=== PATIENT | female | born 1955 | race Two or more races ===

== ENCOUNTER 2021-04-25 15:05 | Inpatient (IN) | payer OTHER ==
[~2021-04-25] VITALS: Ht 152.4 cm; Wt 55.3 kg
--- NOTE | 2021-04-25 15:23 | NUR ---
TO ER BED 6, C/O RLQ ABDOMINAL PAIN, NAUSEA AND VOMITING SINCE THIS MORNING. AAOX4, BREATHING EVEN AND NON LABORED
[2021-04-25] MEDS ORDERED: ONDANSETRON HCL/PF 4 MG/2 ML VIAL IVP ONE (15:30)
[2021-04-25] MEDS ORDERED: IV NS 0.9% 1,000 ML BAG IV ONE (15:30)
[2021-04-25] MEDS ORDERED: MORPHINE SULFATE INJ 2 MG/ML DISP.SYRIN IV ONE ×2 (15:30→18:30)
[2021-04-25] MEDS ORDERED: MORPHINE SULFATE INJ 4 MG/ML DISP.SYRIN ONE ×2 (15:33→18:19)
[2021-04-25] MEDS ORDERED: ONDANSETRON HCL/PF 4 MG/2 ML VIAL ONE ×2 (15:33→18:19)
[2021-04-25 15:49] LABS: BASOPHILS % (AUTO) 0.3 % (0.0-2.0); EOSINOPHILS % (AUTO) 0.3 % (0.0-6.0); HEMATOCRIT 38 % (33-45); HEMOGLOBIN 12.4 g/dL (11.5-14.8); LYMPHOCYTES # (AUTO) 1.5 K/uL (0.8-4.8); LYMPHOCYTES % (AUTO) 17.2 % (20.0-44.0); MEAN CORPUSCULAR HGB CONC 33 g/dl (31.0-36.0); MEAN CORPUSCULAR VOLUME 101 fL (82-100); MONOCYTES # (AUTO) 0.5 K/uL (0.1-1.30); MONOCYTES % (AUTO) 5.8 % (2.0-12.0); NEUTROPHILS # (AUTO) 6.5 K/uL (1.8-8.9); NEUTROPHILS % (AUTO) 76.4 % (43.0-81.0); PLATELET COUNT (AUTO) 215 K/uL (150-450); RED BLOOD CELL COUNT(AUTO) 3.75 MIL/uL (4.0-5.2); WHITE BLOOD COUNT (AUTO) 8.6 K/uL (4.3-11.0)
--- NOTE | 2021-04-25 16:01 | NUR ---
BACK FROM CT
--- NOTE | 2021-04-25 16:14 | NUR ---
CONTACT NUMBER [email or web address] [email or web address]
[2021-04-25] MEDS ORDERED: PIPERACILLIN /TAZOBACTAM 3.375 G in IV D5W 50 ML IV ONE (16:30)
[2021-04-25 16:51] LABS: CARBON DIOXIDE 27 mmol/L (21-32); CHLORIDE 101 mmol/L (98-107); CREATININE 0.9 mg/dL (0.6-1.3); GLUCOSE 166 mg/dL (74-106); POTASSIUM 3.8 mmol/L (3.5-5.1); SODIUM SERUM 137 mmol/L (136-145); UREA NITROGEN, BLOOD 9 mg/dL (7-18)
[2021-04-25 17:03] LABS: ALANINE AMINOTRANSFERASE 34 U/L (12-78); ALBUMIN 3.9 g/dL (3.4-5.0); ALKALINE PHOSPHATASE 146 U/L (46-116); ASPARTATE AMINOTRANSFERASE 40 U/L (15-37); BILIRUBIN,DIRECT 0.2 mg/dL (0.0-0.2); BILIRUBIN,TOTAL 0.6 mg/dL (0.2-1.0); LIPASE 257 U/L (73-393); TOTAL PROTEIN, SERUM 7.5 g/dL (6.4-8.2)
--- NOTE | 2021-04-25 17:09 | NUR ---
COVID SWAB DONE AND SENT TO LAB
--- NOTE | 2021-04-25 17:54 | NUR ---
DR. MCDONALD CONSULTED THE PATIENT.
[2021-04-25] MEDS ORDERED: METRONIDAZOLE 500MG/ NS 100ML 100 ML IV ONE (18:00)
[2021-04-25] MEDS ORDERED: FLAGYL/NS RTU 500 MG/100 ML PIGGYBACK IV ONE (18:00)
[2021-04-25] MEDS ORDERED: LEVOFLOXACIN 750 MG /D5W 150ML 150 ML IV ONE (18:00)
[2021-04-25] MEDS ORDERED: LEVOFLOXACIN 750 MG /D5W 150ML PIGGYBACK IV ONE (18:00)
--- NOTE | 2021-04-25 18:22 | NUR ---
NURSING SUP GAVE 108.
[2021-04-25] MEDS ORDERED: LEVOFLOXACIN 500 MG /D5W 100ML 500 MG in PREMIX 1 EA IV SCH (18:30)
[2021-04-25] MEDS ORDERED: ZOLPIDEM TARTRATE 5 MG TABLET PO PRN (18:30)
[2021-04-25] MEDS ORDERED: ONDANSETRON HCL/PF 4 MG/2 ML VIAL IV ONE (18:30)
[2021-04-25] MEDS ORDERED: HYDROMORPHONE MDV 0.5 MG in IV D5W 50 ML IV PRN (18:30)
--- NOTE | 2021-04-25 18:31 | NUR ---
URINE COLLECTED AND SENT TO LAB
--- NOTE | 2021-04-25 18:43 | NUR ---
REPORT GIVEN TO MARY ANN MEDINA FOR LYUBOV.
--- NOTE | 2021-04-25 19:07 | NUR ---
patient transferred to room 108 in stable condition.
--- NOTE | 2021-04-25 19:20 | NUR ---
RN NOTES RECEIVED PT FROM ER UNDER DR ARELLANO, ADMITTED WITH ACUTE CHOLECYSTITIS. PT V/S ARE BP 110/68, HR 81, RR 18, O2 SATURATION 98%, TEMP 98.1 AND COMPLAINING OF PAIN /. PT TAKEN TO MRCP W/O CONTRAST. REPORT GIVEN TO ONCOMING SHIFT.
[2021-04-25 20:00] VITALS: BP 110/68
--- NOTE | 2021-04-25 20:00 | NUR ---
RN NOTES PATIENT RETURNED FROM MRI, VIA WHEELCHAIR. PATIENT AOX4. ABLE TO MAKE NEEDS KNOWN. FAMILY AT BEDSIDE. PATIENT STATES PAIN IS GETTING BETTER AND RATES IT AT 5/10. HEAD TO TOE ASSESSMENT DONE. SKIN INTACT. BLOOD PRESSURE WITHIN NORMAL LIMITS. NOTED RIGHT AC IV ACCESS INFILTRATED. NEW IV SITE REINSERTED ON LEFT WRIST 22G. PATENT. NO COUGH NOTED. DENIES N/V. BREATHING EVEN AND UNLABORED. CURRENTLY ON ROOM AIR, HOB ELEVATED 35 DEGREES. PATIENT AMBULATORY. CONTINENT. ALL SAFETY MEASURES RENDERED. CALL LIGHT WITHIN REACH.
[2021-04-25] MEDS: IV D5 LR 1,000 ML IV PRN (21:03)
[2021-04-25 21:09] LABS: BILIRUBIN,URINE NEGATIVE (NEGATIVE); COLOR,URINE YELLOW (YELLOW); LEUKOCYTE ESTERASE ,URINE NEGATIVE (NEGATIVE); NITRITE, URINE NEGATIVE (NEGATIVE); PH,URINE 5.5 (5.0-8.0); PROTEIN,URINE NEGATIVE (NEGATIVE); UGLUCOSE NEGATIVE (NEGATIVE); UROBILINOGEN,URINE 0.2 EU/dL (0.2)
[2021-04-25] MEDS ORDERED: LISI40TA13 PO (23:35)
[2021-04-25] MEDS ORDERED: ATOR10TA PO (23:35)
[2021-04-25] MEDS ORDERED: ATEN25TA PO (23:35)
[2021-04-25] MEDS ORDERED: LEVO25TA7 PO (23:35)
[2021-04-26] MEDS: METRONIDAZOLE 500MG/ NS 100ML 500 MG in PREMIX 1 EA IV SCH ×3 (02:11→18:36)
[2021-04-26] MEDS: HYDROMORPHONE 1 MG/1 ML DISP.SYRIN IV PRN ×4 (02:31→15:55)
[2021-04-26] MEDS: ONDANSETRON HCL/PF 4 MG/2 ML VIAL IV PRN ×3 (02:40→15:54)
[2021-04-26 04:00] VITALS: BP 97/57
--- NOTE | 2021-04-26 04:26 | NUR ---
RN NOTE PT UNABLE TO URINATE SINCE ADMISSION. COMPLAINING OF PAIN. WITH >400CC ON BLADDER SCANNER. NOTIFIED DR ARELLANO. NEW ORDER TO INSERT CONTRERAS, NOTED AND CARRIED OUT.
--- NOTE | 2021-04-26 04:51 | NUR ---
RN NOTE INSERTED CONTRERAS CATHETER TO PT, PT TOLERATED WELL. WITH 300ML IBIS URINE OUTPUT. PT COMPLAINS OF DISCOMFORT ON R ABDOMEN, 10 MINS AFTER INSERTION. PER PT IT'S A NEW KIND OF PAIN, REQUESTED TO REMOVE CONTRERAS. EXPLAINED RISKS AND BENEFITS, VERBALIZES UNDERSTANDING. WILL CONTINUE TO MONITOR.
[2021-04-26 06:15] LABS: BASOPHILS % (AUTO) 0.2 % (0.0-2.0); HEMATOCRIT 38 % (33-45); HEMOGLOBIN 12.6 g/dL (11.5-14.8); LYMPHOCYTES # (AUTO) 0.6 K/uL (0.8-4.8); LYMPHOCYTES % (AUTO) 13.3 % (20.0-44.0); MEAN CORPUSCULAR HGB CONC 33 g/dl (31.0-36.0); MEAN CORPUSCULAR VOLUME 102 fL (82-100); MONOCYTES # (AUTO) 0.4 K/uL (0.1-1.30); MONOCYTES % (AUTO) 9.9 % (2.0-12.0); NEUTROPHILS # (AUTO) 3.2 K/uL (1.8-8.9); NEUTROPHILS % (AUTO) 76.6 % (43.0-81.0); PLATELET COUNT (AUTO) 173 K/uL (150-450); RED BLOOD CELL COUNT(AUTO) 3.78 MIL/uL (4.0-5.2); WHITE BLOOD COUNT (AUTO) 4.2 K/uL (4.3-11.0)
--- NOTE | 2021-04-26 06:30 | NUR ---
RN NOTES NO SIGNIFICANT CHANGES DURING SHIFT. BREATHING EVEN AND UNLABORED. NO SOB NOTED. ON ROOM AIR. AFEBRILE. PATIENT WITH IV ACCESS ON LEFT WRIST 22G. PATENT WITH GOOD BLOOD RETURN. RUNNING D5 LR @ 100 ML/HR. NO INFILTRATION NOTED. PATIENT WITH COMPLAINTS OF 5/10 PAIN ONLY WHEN REPOSITIONING. EPISODE OF NAUSEA NOTED, ZOFRAN GIVEN, TOLERATED WELL. PATIENT WITH IV FLAGYL SCHEDULED, NO ADVERSE REACTION NOTED. CALL LIGHT WITHIN REACH. ALL NEEDS ATTENDED. WILL ENDORSE TO NEXT SHIFT.
[2021-04-26 07:11] LABS: ALBUMIN 2.8 g/dL (3.4-5.0); BILIRUBIN,TOTAL 0.7 mg/dL (0.2-1.0); CALCIUM, SERUM 8.2 mg/dL (8.5-10.1); CREATININE 0.9 mg/dL (0.6-1.3); MAGNESIUM 1.7 mg/dL (1.8-2.4); POTASSIUM 4.3 mmol/L (3.5-5.1); TOTAL PROTEIN, SERUM 6.1 g/dL (6.4-8.2)
--- NOTE | 2021-04-26 07:30 | NUR ---
RN NOTE DR ARELLANO MADE AWARE REGARDING PTS CONTRERAS. NO NEW ORDER MADE.
[2021-04-26] MEDS: IV D5 LR 1,000 ML IV PRN (09:55)
[2021-04-26 10:00] VITALS: BP 103/67
[2021-04-26] MEDS: Magnesium 1GM/D5W 100ML PREMIX 100 ML IV SCH ×2 (11:40→13:07)
[2021-04-26] MEDS ORDERED: LORAZEPAM INJ 2 MG/ML VIAL IV PRN (12:30)
--- NOTE | 2021-04-26 12:30 | NUR ---
RN NOTE OBTAINED CONSENTS FOR LAPAROSCOPIC CHOLECYSTECTOMY 04/27 @8773.
[2021-04-26] MEDS: Thiamine 100 MG in IV D5W 50 ML IV SCH (14:09)
--- NOTE | 2021-04-26 14:52 | NUR ---
RN NOTE EXPLAINED RISKS/BENEFITS OF CONTRERAS INSERTION, HOWEVER PT REFUSED. PT AGREED TO STRAIGHT CATHETERIZATION AND 400ML OF IBIS URINE WAS OBTAINED.
[2021-04-26] MEDS: Folic acid 1 MG in IV D5W 50 ML IV SCH (14:55)
[2021-04-26 16:00] VITALS: BP 123/80
--- NOTE | 2021-04-26 18:33 | NUR ---
RN NOTES PT WILL BE NPO AFTER MIDNIGHT FOR PROCEDURE 04/27 @0730. PT COMPLAINING OF PAIN 05/06 IN RLQ. LAST MEDICATED WITH DILAUDID @5055. SAFETY MEASURES IN PLACE WITH BED IN LOWEST LOCKED POSITION, AND CALL LIGHT WITHIN REACH.
--- NOTE | 2021-04-26 19:39 | NUR ---
RN NOTES RECEIVED PATIENT IN BED, AWAKE ALERT AND VERBALLY RESPONSIVE. AOX4. ABLE TO MAKE NEEDS KNOWN. BREATHING EVEN AND UNLABORED. ON ROOM AIR. NO SOB NOTED, NO COUGH/CONGESTION NOTED. DENIES FEELING NAUSEOUS AT THIS TIME. SKIN IS WARM AND DRY TO TOUCH AFEBRILE. PATIENT NOTED WITH IV ACCESS ON LEFT WRIST AND LEFT AC. PATENT. NO INFILTRATION NOTED. PATIENT TO BE NPO AFTER MIDNIGHT FOR LAPAROSCOPIC CHOLECYSTECTOMY WITH POSSIBLE OPEN EXPLORATORY LAPAROTOMY. PATIENT VERBALIZED UNDERSTANDING. PATIENT REMAINS TO HAVE MILD PAIN IN THE RLQ 03/06. ASSISTED WITH REPOSITIONING. CALL LIGHT WITHIN REACH.
[2021-04-26 21:00] VITALS: BP 123/89
--- NOTE | 2021-04-27 | NUR ---
RN NOTES INITIATED NPO FOR AM SURGERY.
[2021-04-27] MEDS: HYDROMORPHONE 1 MG/1 ML DISP.SYRIN IV PRN ×2 (00:37→14:58)
--- NOTE | 2021-04-27 00:40 | NUR ---
RN NOTES PATIENT COMPLAINING OF 10/10 PAIN ON RLQ. ASSISTED WITH REPOSITIONING TOLERATED. INEFFECTIVE. PATIENT REQUESTING FOR PAIN MEDICATION. ADMINISTERED DILAUDID 0.5 MG/0.5 ML ORDERED. WILL CONTINUE TO MONITOR.
--- NOTE | 2021-04-27 00:58 | NUR ---
RN NOTES REINSERTED INDWELLING CONTRERAS CATHETER 16 Fr AND DRAINED 350 ML IBIS URINE. PATIENT VERBALIZED FEELING MUCH BETTER. EXPLAINED THE RISK AND BENEFITS OF HAVING A CONTRERAS CATHETER. PATIENT VERBALIZED UNDERSTANDING. CALL LIGHT WITHIN REACH.
[2021-04-27] MEDS: METRONIDAZOLE 500MG/ NS 100ML 500 MG in PREMIX 1 EA IV SCH ×3 (02:31→18:55)
[2021-04-27 04:00] VITALS: BP 129/80
[2021-04-27] MEDS: IV D5 LR 1,000 ML IV PRN (05:29)
--- NOTE | 2021-04-27 07:10 | NUR ---
RN NOTES PATIENT PICKED UP BY OR NURSE. PRE-OP CHECKLIST COMPLETED AND REVIEWED WITH OR NURSE. PATIENT BELONGINGS TO BE LEFT BEHIND IN THE ROOM PER OR NURSE.
[2021-04-27] MEDS ORDERED: HYDROMORPHONE INJ 2 MG/ML DISP.SYRIN ONE (07:17)
[2021-04-27] MEDS ORDERED: ROCURONIUM BROMIDE 50 MG/5 ML ONE (07:17)
--- NOTE | 2021-04-27 07:20 | NUR ---
RN NOTES RECEIVED PT AWAKE/ALERT AND ON HER WAY TO OR.
[2021-04-27 07:25] LABS: BASOPHILS % (AUTO) 0.1 % (0.0-2.0); EOSINOPHILS % (AUTO) 0.3 % (0.0-6.0); HEMATOCRIT 38 % (33-45); HEMOGLOBIN 12.4 g/dL (11.5-14.8); LYMPHOCYTES # (AUTO) 0.7 K/uL (0.8-4.8); LYMPHOCYTES % (AUTO) 17.5 % (20.0-44.0); MEAN CORPUSCULAR HGB CONC 33 g/dl (31.0-36.0); MEAN CORPUSCULAR VOLUME 101 fL (82-100); MONOCYTES # (AUTO) 0.2 K/uL (0.1-1.30); MONOCYTES % (AUTO) 4.4 % (2.0-12.0); NEUTROPHILS # (AUTO) 3.2 K/uL (1.8-8.9); NEUTROPHILS % (AUTO) 77.7 % (43.0-81.0); PLATELET COUNT (AUTO) 151 K/uL (150-450); RED BLOOD CELL COUNT(AUTO) 3.72 MIL/uL (4.0-5.2); WHITE BLOOD COUNT (AUTO) 4.1 K/uL (4.3-11.0)
[2021-04-27] MEDS ORDERED: LIDOCAINE 1% INJ 50 ML MDV IJ ONE ×2 (07:25→10:23)
[2021-04-27] MEDS ORDERED: BUPIVACAINE MPF 0.5% W/EPI INJ 30 ML VIAL ONE (07:25)
[2021-04-27] MEDS ORDERED: FAMOTIDINE/PF INJ 20 MG/2 ML VIAL IV ONE (07:27)
[2021-04-27 07:28] LABS: ALBUMIN 2.2 g/dL (3.4-5.0); BILIRUBIN,TOTAL 0.6 mg/dL (0.2-1.0); CREATININE 0.8 mg/dL (0.6-1.3); MAGNESIUM 2.3 mg/dL (1.8-2.4); POTASSIUM 4.1 mmol/L (3.5-5.1); TOTAL PROTEIN, SERUM 5.9 g/dL (6.4-8.2)
[2021-04-27] MEDS ORDERED: CLINDAMYCIN 900 MG/6 ML VIAL ONE (07:31)
[2021-04-27] MEDS ORDERED: CELLULOSE,OXIDIZED 1 EACH EACH MC ONE ×2 (09:15→09:17)
[2021-04-27] MEDS ORDERED: BACITRACIN OPHTH OINT 3.5 GM TUBE ONE (10:01)
[2021-04-27] MEDS ORDERED: LIDOCAINE 0.5%-EPI 1:200,000 50 ML VIAL ONE (10:24)
[2021-04-27 12:05] VITALS: BP 128/80
[2021-04-27 12:20] VITALS: BP 139/82
[2021-04-27] MEDS: Thiamine 100 MG in IV D5W 50 ML IV SCH (13:50)
[2021-04-27] MEDS: Folic acid 1 MG in IV D5W 50 ML IV SCH (14:13)
[2021-04-27] MEDS: ONDANSETRON HCL/PF 4 MG/2 ML VIAL IV PRN (14:58)
[2021-04-27] MEDS ORDERED: LEVOFLOXACIN 750 MG /D5W 150ML 750 MG in PREMIX 1 EA IV SCH (19:00)
--- NOTE | 2021-04-27 19:49 | NUR ---
RN OPENING NOTES RECEIVED PATIENT IN BED, AOX4, COOPERATIVE AND ABLE TO MAKE NEEDS KNOWN. BREATHING EVEN AND UNLABORED. ON NC 2L VIA NC WITH SATURATIONS ABOVE 98% NO SOB NOTED OR RESP. DISTRESS NOTED. DENIES N/V/D. SKIN IS WARM AND DRY TO TOUCH. PATIENT NOTED WITH IV ACCESS ON LEFT WRIST AND LEFT AC, BOTH PATENT AND INTACT WITH CLEAN AND DRY DRESSING; INFUSING D5WLR @75 ML/HR. PATIENT ON CLEAR LIQUID DIET S/P CHOLECYSTECTOMY.DENIES ANY PAIN AT THIS TIME. CONTRERAS CATHETER NOTED, FREE OF KINKS OR OBSTRUCTIONS DRAINING CLEAR IBIS URINE TO GRAVITY. SAFETY MEASURES IMPLEMENTED: BED LOCKED IN LOWEST POSITION, CALL LIGHT WITHIN REACH, SIDE RAILS UP X2. NO ACUTE DISTRESS NOTED AT THIS TIME.
[2021-04-27 20:00] VITALS: BP 131/73
[2021-04-27] MEDS: ACETAMINOPHEN 325 MG TABLET PO SCH (21:24)
[2021-04-27] MEDS: IBUPROFEN 400 MG TABLET PO SCH (21:24)
[2021-04-27] MEDS: GABAPENTIN 300 MG CAPSULE PO SCH (21:24)
[2021-04-28] MEDS: METRONIDAZOLE 500MG/ NS 100ML 500 MG in PREMIX 1 EA IV SCH ×3 (02:27→17:46)
[2021-04-28] MEDS: IV LR 1000 ML 1,000 ML IV PRN ×3 (03:12→20:13)
[2021-04-28 04:00] VITALS: BP 118/72
[2021-04-28] MEDS: IBUPROFEN 400 MG TABLET PO SCH ×3 (05:02→20:52)
[2021-04-28] MEDS: GABAPENTIN 300 MG CAPSULE PO SCH ×3 (05:02→20:52)
[2021-04-28] MEDS: ACETAMINOPHEN 325 MG TABLET PO SCH ×3 (05:02→20:51)
--- NOTE | 2021-04-28 06:23 | NUR ---
RN CLOSING NOTES PATIENT IN BED, AOX4, COOPERATIVE AND ABLE TO MAKE NEEDS KNOWN. BREATHING EVEN AND UNLABORED. ON NC 2L VIA NC WITH SATURATIONS ABOVE 98% NO SOB OR RESP. DISTRESS NOTED. DENIES N/V/D. SKIN IS WARM AND DRY TO TOUCH. PATIENT NOTED WITH IV ACCESS ON LEFT WRIST AND LEFT AC, BOTH PATENT AND INTACT WITH CLEAN AND DRY DRESSING; INFUSING LR @175 ML/HR. PATIENT ON CLEAR LIQUID DIET S/P CHOLECYSTECTOMY. DENIES ANY PAIN AT THIS TIME. CONTRERAS CATHETER REMAINS IN PLACE, FREE OF KINKS OR OBSTRUCTIONS DRAINING CLEAR IBIS URINE TO GRAVITY. MALCOM DRAIN ON RIGHT INCISIONAL SITE PATENT AND 200 ML OF SEROSANGUINEOUS FLUID REMOVED. ALL NEEDS AND ORDERS MET THROUGHOUT SHIFT. PATIENT KEPT CLEAN AND DRY. SAFETY MEASURES IMPLEMENTED: BED LOCKED IN LOWEST POSITION, CALL LIGHT WITHIN REACH, SIDE RAILS UP X2. NO ACUTE DISTRESS NOTED AT THIS TIME. WILL ENDORSE TO MORNING SHIFT RN.
[2021-04-28 07:05] LABS: EOSINOPHILS % (AUTO) 0.1 % (0.0-6.0); HEMATOCRIT 27 % (33-45); LYMPHOCYTES # (AUTO) 0.5 K/uL (0.8-4.8); LYMPHOCYTES % (AUTO) 7.6 % (20.0-44.0); MEAN CORPUSCULAR HGB CONC 34 g/dl (31.0-36.0); MEAN CORPUSCULAR VOLUME 101 fL (82-100); MONOCYTES # (AUTO) 0.4 K/uL (0.1-1.30); NEUTROPHILS # (AUTO) 6.2 K/uL (1.8-8.9); NEUTROPHILS % (AUTO) 87.3 % (43.0-81.0); PLATELET COUNT (AUTO) 125 K/uL (150-450); RED BLOOD CELL COUNT(AUTO) 2.65 MIL/uL (4.0-5.2); WHITE BLOOD COUNT (AUTO) 7.1 K/uL (4.3-11.0)
--- NOTE | 2021-04-28 07:15 | NUR ---
RN OPENING NOTE Received patient asleep in bed appears calm and relaxed no signs of distress. On NC 2L tolerating well. Patient is AO x4. Tele reading SR 70s. Hurd catheter draining by gravity clear yellow to guerita urine color. Patient is s/p cholecystectomy has right abdomen dressing dry and clean no signs of bleeding. Has MALCOM drain at 75ml at the moment serosanguineous. Patient has L wrist #22 running LR @ 175ml/hr. and L AC #22 on TKO. Safety measures maintained. Call light within reach. Will cont to monitor.
[2021-04-28 08:00] VITALS: BP 145/78
[2021-04-28] MEDS: THIAMINE HCL 100 MG TABLET PO SCH (08:27)
[2021-04-28] MEDS: METOCLOPRAMIDE HCL 10 MG/2 ML VIAL IV SCH ×3 (08:27→20:51)
[2021-04-28] MEDS: FOLIC ACID 1 MG TABLET PO SCH (08:27)
[2021-04-28 09:34] LABS: ALBUMIN 1.7 g/dL (3.4-5.0); BILIRUBIN,TOTAL 0.4 mg/dL (0.2-1.0); CALCIUM, SERUM 8.2 mg/dL (8.5-10.1); CREATININE 0.8 mg/dL (0.6-1.3); MAGNESIUM 2.1 mg/dL (1.8-2.4); PHOSPHORUS 1.8 mg/dL (2.5-4.9); POTASSIUM 4.2 mmol/L (3.5-5.1); TOTAL PROTEIN, SERUM 5.1 g/dL (6.4-8.2)
[2021-04-28] MEDS ORDERED: POTASSIUM PHOSPHATE MM 15 MMOL in IV NS 0.9% 250 ML IV ONE (10:00)
[2021-04-28] MEDS: LEVOTHYROXINE SODIUM 25 MCG TABLET PO SCH (10:49)
[2021-04-28] MEDS: ENOXAPARIN SODIUM 40 MG/0.4 ML DISP.SYRIN SQ SCH (10:50)
[2021-04-28] MEDS: LEVOFLOXACIN 500 MG /D5W 100ML 500 MG in PREMIX 1 EA IV SCH (10:52)
[2021-04-28] MEDS: HYDROMORPHONE 1 MG/1 ML DISP.SYRIN IV PRN (11:07)
[2021-04-28] MEDS ORDERED: NEUTRA PHOS 1 POWD.PACKET PO ONE (15:30)
[2021-04-28 16:00] VITALS: BP 132/74
--- NOTE | 2021-04-28 19:50 | NUR ---
RN CLOSING NOTE Patient in bed awake no signs of distress. All due meds given. All needs met. No fever or signs of infection. Was able to help her on the chair and and dangle feet in bed as well. Has good po intake. Pain is moderate 8/10 gave pain meds as ordered. Report given to bunch maker nurse for donya.
[2021-04-28 20:00] VITALS: BP 135/80
--- NOTE | 2021-04-28 20:45 | NUR ---
MS RN NOTE RECEIVED REPORT FROM CAROL VIDALES FOR TRANSFER OF CARE. PATIENT AWAKE IN BED, ALERT/ORIENTED X 3, PT ABLE TO MAKE NEEDS KNOWN. PT STABLE ON 2L OF OXYGEN VIA NC, NO S/S OF DISTRESS OR SOB NOTED, BREATHING EVEN AND UNLABORED. LEFT WRIST IV ACCESS REMOVED D/T PATIENT COMPLAINING OF PAIN, LEFT AC IV ACCESS RUNNING LR @ 150 ML/HR. CONTRERAS CATH INTACT AND DRAINING WELL. RIGHT SIDE MALCOM DRAIN INTACT AND DRAINING WELL. SAFETY MEASURES IN PLACE: CALL LIGHT WITHIN REACH, BED ALARM ON, SIDE RAILS UP X 2, BED LOCKED IN LOW POSITION. WILL CONTINUE TO MONITOR
--- NOTE | 2021-04-28 22:00 | NUR ---
MS RN NOTE PATIENT HAD ONE EPISODE OF EMESIS, 150 ML OUT. ZOFRAN GIVEN ORDERED. WILL CONTINUE TO MONITOR PATIENT
[2021-04-28] MEDS: ONDANSETRON HCL/PF 4 MG/2 ML VIAL IV PRN (22:09)
[2021-04-29] MEDS: METRONIDAZOLE 500MG/ NS 100ML 500 MG in PREMIX 1 EA IV SCH ×3 (02:26→17:30)
[2021-04-29] MEDS: ONDANSETRON HCL/PF 4 MG/2 ML VIAL IV PRN ×2 (02:33→12:41)
[2021-04-29] MEDS: METOCLOPRAMIDE HCL 10 MG/2 ML VIAL IV SCH ×4 (03:41→20:30)
--- NOTE | 2021-04-29 03:52 | NUR ---
MS RN NOTE PATIENT HAD TWO EPISODES OF BROWN EMESIS, 700 ML IN TOTAL. ZOFRAN GIVEN ABOUT AN HOUR AGO ORDERED. WILL CONTINUE TO MONITOR PATIENT
[2021-04-29 04:00] VITALS: BP 136/82
[2021-04-29] MEDS: IV LR 1000 ML 1,000 ML IV PRN ×2 (04:42→20:29)
[2021-04-29] MEDS: GABAPENTIN 300 MG CAPSULE PO SCH ×3 (04:42→20:30)
[2021-04-29] MEDS: IBUPROFEN 400 MG TABLET PO SCH ×3 (04:43→20:30)
[2021-04-29] MEDS: ACETAMINOPHEN 325 MG TABLET PO SCH ×3 (04:43→20:15)
[2021-04-29 06:03] LABS: EOSINOPHILS % (AUTO) 0.3 % (0.0-6.0); HEMATOCRIT 30 % (33-45); LYMPHOCYTES # (AUTO) 0.8 K/uL (0.8-4.8); LYMPHOCYTES % (AUTO) 10.2 % (20.0-44.0); MEAN CORPUSCULAR HGB CONC 33 g/dl (31.0-36.0); MEAN CORPUSCULAR VOLUME 100 fL (82-100); MONOCYTES # (AUTO) 0.6 K/uL (0.1-1.30); MONOCYTES % (AUTO) 7.2 % (2.0-12.0); NEUTROPHILS # (AUTO) 6.4 K/uL (1.8-8.9); NEUTROPHILS % (AUTO) 82.3 % (43.0-81.0); PLATELET COUNT (AUTO) 178 K/uL (150-450); RED BLOOD CELL COUNT(AUTO) 3.02 MIL/uL (4.0-5.2); WHITE BLOOD COUNT (AUTO) 7.8 K/uL (4.3-11.0)
--- NOTE | 2021-04-29 07:00 | NUR ---
MS CLOSING NOTES PATIENT SLEEPING IN BED, NO S/S OF DISTRESS OR SOB NOTED, BREATHING EVEN AND UNLABORED. NO MORE EPISODES OF EMESIS OR NAUSEA. MEDICATIONS GIVEN ORDERED, PT NEEDS MET THROUGHOUT SHIFT. SAFETY MEASURES IN PLACE: CALL LIGHT WITHIN REACH, SIDE RAILS UP X 2, BED LOCKED IN LOW POSITION, BED ALARM ON. ENDORSED TO DAY SHIFT NURSE FOR CONTINUITY OF CARE
[2021-04-29 07:05] LABS: ALBUMIN 1.7 g/dL (3.4-5.0); BILIRUBIN,TOTAL 0.6 mg/dL (0.2-1.0); CREATININE 0.8 mg/dL (0.6-1.3); PHOSPHORUS 3.1 mg/dL (2.5-4.9); POTASSIUM 3.9 mmol/L (3.5-5.1); TOTAL PROTEIN, SERUM 5.1 g/dL (6.4-8.2)
--- NOTE | 2021-04-29 07:15 | NUR ---
RN OPENING NOTES RECEIVED PATIENT IN BED, AOX4, ABLE TO MAKE NEEDS KNOWN. BREATHING EVEN AND UNLABORED. ON NC 2L VIA NC WITH SATURATIONS ABOVE 98% NO SOB NOTED OR RESP. DISTRESS NOTED. DENIES N/V/D. PATIENT NOTED WITH IV ACCESS ON AND LEFT AC, PATENT AND INTACT; INFUSING D5WLR @75 ML/HR. PATIENT ON CLEAR LIQUID DIET S/P CHOLECYSTECTOMY. DENIES ANY PAIN AT THIS TIME. CONTRERAS CATHETER NOTED, DRAINING CLEAR YELLOW URINE TO GRAVITY. SAFETY MEASURES IMPLEMENTED: BED LOCKED IN LOWEST POSITION, CALL LIGHT WITHIN REACH, SIDE RAILS UP X2. WILL CONTINUE TO MONITOR
[2021-04-29] MEDS: LEVOTHYROXINE SODIUM 25 MCG TABLET PO SCH (07:34)
--- NOTE | 2021-04-29 07:41 | NUR ---
RN NOTE RECEIVED ORDER FROM DR ARELLANO FOR DULCOLAX 10 MG SUPPOSITORY, X1 NOW, BOWEL SOUNDS ACTIVE. WILL CONTINUE TO MONITOR
[2021-04-29] MEDS: THIAMINE HCL 100 MG TABLET PO SCH (08:17)
[2021-04-29] MEDS: FOLIC ACID 1 MG TABLET PO SCH (08:17)
[2021-04-29] MEDS ORDERED: BISACODYL SUPP (10 MG) 10 MG/SUPP.RECT SUPP.RECT RC ONE (09:00)
[2021-04-29] MEDS: LEVOFLOXACIN 500 MG /D5W 100ML 500 MG in PREMIX 1 EA IV SCH (09:19)
[2021-04-29] MEDS: ENOXAPARIN SODIUM 40 MG/0.4 ML DISP.SYRIN SQ SCH (09:39)
[2021-04-29 09:42] VITALS: BP 132/80
[2021-04-29 12:06] VITALS: BP 132/80
--- NOTE | 2021-04-29 14:21 | NUR ---
ms rn note dr garrido surgeon called aware that patient not passing gas yet s\p surgery, bowel sound present ,ordered fleet enema, order carried out
[2021-04-29] MEDS ORDERED: NA PHOS,M-B/NA PHOS,DI-BA 1 EA ENEMA RC PRN (14:30)
--- NOTE | 2021-04-29 18:33 | NUR ---
RN CLOSING NOTES PATIENT IN BED, AOX4, ABLE TO MAKE NEEDS KNOWN. BREATHING EVEN AND UNLABORED. ON NC 2L VIA NC WITH SATURATIONS ABOVE 98% NO SOB NOTED OR RESP. DISTRESS NOTED. DENIES N/V/D. PATIENT NOTED WITH IV ACCESS ON AND LEFT AC, PATENT AND INTACT; INFUSING D5WLR @75 ML/HR. PATIENT ON CLEAR LIQUID DIET S/P CHOLECYSTECTOMY. MALCOM DRAINED 250 ML DURING SHIFT DENIES ANY PAIN AT THIS TIME. CONTRERAS CATHETER NOTED, DRAINING CLEAR IBIS URINE TO GRAVITY. ALL MEDICATIONS GIVEN ORDERED. SAFETY MEASURES IMPLEMENTED: BED LOCKED IN LOWEST POSITION, CALL LIGHT WITHIN REACH, SIDE RAILS UP X2. WILL ENDORSE TO ONCOMING SHIFT
--- NOTE | 2021-04-29 19:45 | NUR ---
RN NOTE PT RECEIVED IN BED. PT IS ON 2L OF O2 VIA NC SHOWING NO S/S OF RESP DISTRESS. PT IS A/OX4. RIGHT ABDOMEN SURGICAL INCISION NOTED. LEFT AC #22 NOTED, LINE FLUSHED, PATENT, AND INTACT WITH NO INFILTRATION. LACTATED RINGERS RUNNING AT 150 ML/HR. ALL SAFETY MEASURES IMPLEMENTED. BED ALARM ON. CALL LIGHT WITHIN REACH. BED LOCKED AND IN LOWEST POSITION. WILL CONTINUE TO MONITOR AND ASSESS FOR ANY CHANGES.
[2021-04-29 20:00] VITALS: BP 143/88
--- NOTE | 2021-04-29 20:16 | NUR ---
RN NOTE SPOKE WITH DR. DIXON ABOUT PT'S SCHEDULED MEDICATION OF MOTRIN 800MG Q8H AND TYLENOL [address] DIXON, ADMINISTER ONE ONLY, HOLD TYLENOL AND ADMINISTER MOTRIN. ORDERED NOTED AND CARRIED OUT.
[2021-04-30] MEDS: METRONIDAZOLE 500MG/ NS 100ML 500 MG in PREMIX 1 EA IV SCH ×3 (02:05→18:13)
[2021-04-30] MEDS: METOCLOPRAMIDE HCL 10 MG/2 ML VIAL IV SCH ×4 (03:34→20:30)
[2021-04-30 04:00] VITALS: BP 131/77
[2021-04-30] MEDS: ACETAMINOPHEN 325 MG TABLET PO SCH (05:00)
[2021-04-30] MEDS: IBUPROFEN 400 MG TABLET PO SCH ×3 (05:23→20:30)
[2021-04-30] MEDS: GABAPENTIN 300 MG CAPSULE PO SCH ×3 (05:23→20:30)
[2021-04-30] MEDS: IV LR 1000 ML 1,000 ML IV PRN (05:37)
--- NOTE | 2021-04-30 06:32 | NUR ---
RN NOTE NO CHANGES IN PT CONDITION DURING SHIFT. PT IS ON 2L OF O2 VIA NC SHOWING NO S/S OF RESP DISTRESS. RIGHT ABDOMEN SURGICAL INCISION NOTED S/P CHOLECYSTECTOMY. IV ACCESS ON LEFT AC #22 NOTED, LINE FLUSHED, PATENT, AND INTACT WITH NO INFILTRATION. LACTATED RINGERS RUNNING AT 150 ML/HR. ALL DUE MEDS GIVEN ORDERED. PT KEPT CLEAN AND COMFORTABLE. ALL SAFETY MEASURES IMPLEMENTED. BED ALARM ON. CALL LIGHT WITHIN REACH. BED LOCKED AND IN LOWEST POSITION. WILL ENDORSE TO MORNING SHIFT RN FOR LYUBOV.
--- NOTE | 2021-04-30 07:27 | NUR ---
RN OPENING NOTE PATIENT IN BED, AWAKE, A&OX4. ON 2L NC WITH NO SIGNS OF LABORED BREATHING AT THIS TIME. CONTRERAS CATH IN PLACE. R ABD SURGICAL INCISION WITH DRESSING CLEAN, DRY AND INTACT. L AC 22G IN PLACE RUNNING LR AT 150 ML/HR. BED LOCKED AND IN LOWEST POSITION, CALL LIGHT WITHIN REACH, SIDE RAILS UP X3, ALL SAFETY MEASURES IMPLEMENTED.
[2021-04-30] MEDS: FOLIC ACID 1 MG TABLET PO SCH (08:06)
[2021-04-30] MEDS: LEVOTHYROXINE SODIUM 25 MCG TABLET PO SCH (08:06)
[2021-04-30] MEDS: THIAMINE HCL 100 MG TABLET PO SCH (08:06)
[2021-04-30] MEDS: LEVOFLOXACIN 500 MG /D5W 100ML 500 MG in PREMIX 1 EA IV SCH (09:37)
[2021-04-30] MEDS: ENOXAPARIN SODIUM 40 MG/0.4 ML DISP.SYRIN SQ SCH (09:39)
[2021-04-30 12:00] VITALS: BP 150/67
--- NOTE | 2021-04-30 12:43 | NUR ---
RN NOTE PATIENT SCHEDULED TO RECEIVE MOTRIN 800MG AND TYLENOL 650MG AT 1300. D/C TYLENOL PER DR ADAN PHELAN.
--- NOTE | 2021-04-30 18:06 | NUR ---
RN NOTE CONTRERAS CATHETER REMOVED PER MD ORDER AT 1800.
--- NOTE | 2021-04-30 18:38 | NUR ---
RN CLOSING NOTE PATIENT IN BED, AWAKE AND ALERT, A&OX4. R ABD DRAIN IN PLACE. L AC IV IN PLACE AND RUNNING FLAGYL AT THIS TIME. BED LOCKED AND IN LOWEST POSITION, CALL LIGHT WITHIN REACH, ALL SAFETY MEASURES IMPLEMENTED. WILL ENDORSE TO LOG RAFTER NURSE.
--- NOTE | 2021-04-30 19:00 | NUR ---
RN NOTE RECEIVED PATIENT IN BED RESTING ALERT ORIENTED X4 VERBALLY RESPONSIVE ON 2L OXYGEN VIA NASAL CANNULA O2:98% IV SITE IS ON LEFT AC INTACT PATENT MALCOM ON LEFT ABDOMEN IN PLACE,AMBULATORY,CONTINET TO BOWEL/BLADDER SAFETY MEASURE IMPLEMENT BED IN LOW POSITON AND LOCKED,CALL LIGHT WITHIN REACH CONTINUE TO MONITOR.
[2021-04-30 20:00] VITALS: BP 128/79
[2021-05-01] MEDS: METRONIDAZOLE 500MG/ NS 100ML 500 MG in PREMIX 1 EA IV SCH ×2 (03:08→10:38)
[2021-05-01] MEDS: METOCLOPRAMIDE HCL 10 MG/2 ML VIAL IV SCH ×2 (03:08→09:25)
[2021-05-01 04:00] VITALS: BP 135/71
[2021-05-01] MEDS: IBUPROFEN 400 MG TABLET PO SCH ×2 (04:55→12:19)
[2021-05-01] MEDS: GABAPENTIN 300 MG CAPSULE PO SCH ×2 (04:55→12:19)
--- NOTE | 2021-05-01 06:55 | NUR ---
RN NOTE PATIENT REMAINS ON ALERT ORIENTED X4 VERBALLY RESPONSIVE NO SOB NOT ACUTE DISTRESS NOTED,PATIENT URINATED 4 TIMES DURING SHIFT,COLLECTED 60CC SURGICAL FLUID FROM MALCOM ALL DUE MEDS GIVEN MD ORDERED KEEP CLEAN AND DRY ALL THE TIME ALL NEEDS MET ENDORSE NEXT COMING SHIFT FOR CONTINUATION OF CARE.
[2021-05-01] MEDS: LEVOTHYROXINE SODIUM 25 MCG TABLET PO SCH (07:39)
--- NOTE | 2021-05-01 08:02 | NUR ---
NURSE OPENING NOTE RECEIVE REPORT FROM OUT GOING NURSE. PATIENT IS STABLE AND COMFORTABLE. A/O X4. ON 2L OF OXYGEN VIA NC. [employer] MONITOR. AMBULATE WITH ASSISTANCE. SAFETY MEASURE IN PLACE. GOAL IS TO MANAGE PAIN CONTROL AND MONITOR DRAIN AND WOUND DRESSING. CALL LIGHT WITH IN REACH. BED IN LOWEST POSITION WITH HOB ELEVATED 30 DEGREE. WILL CONTINUE TO MONITOR.
[2021-05-01] MEDS: FOLIC ACID 1 MG TABLET PO SCH (09:22)
[2021-05-01] MEDS: THIAMINE HCL 100 MG TABLET PO SCH (09:22)
[2021-05-01] MEDS: LEVOFLOXACIN 500 MG /D5W 100ML 500 MG in PREMIX 1 EA IV SCH (09:23)
[2021-05-01] MEDS: ENOXAPARIN SODIUM 40 MG/0.4 ML DISP.SYRIN SQ SCH (09:34)
[2021-05-01] MEDS ORDERED: METR500T PO (11:33)
[2021-05-01] MEDS ORDERED: LEVO500T90 PO (11:33)
[2021-05-01] MEDS ORDERED: FERR325T23 PO (11:40)
[2021-05-01 12:00] VITALS: BP 121/74
[2021-05-01] MEDS ORDERED: METRONIDAZOLE 500 MG TABLET PO SCH (18:00)
[2021-05-02] MEDS ORDERED: LEVOFLOXACIN (250MG) 250 MG TABLET PO SCH (10:00)
== END 2021-05-01 15:30 | disposition home or self-care (01) | DRG 417 ==
LOC: ER 15:10 → MEDSG1 18:39 → TELE1 04-27 11:08 → MEDSG1 04-28 08:13
PROVIDERS: ADMIT Internal Medicine; ATTEND Internal Medicine
PROC: 0FT44ZZ Resection of Gallbladder, Percutaneous Endoscopic Approach (ICD-10-PCS; principal; 2021-04-27)
DX: K80.00 Calculus of gallbladder with acute cholecystitis without obstruction (principal); K65.9 Peritonitis, unspecified; K85.10 Biliary acute pancreatitis without necrosis or infection; K82.A2 Perforation of gallbladder in cholecystitis; K56.7 Ileus, unspecified; I10 Essential (primary) hypertension; E78.5 Hyperlipidemia, unspecified; Z20.822 Contact with and (suspected) exposure to COVID-19; D64.9 Anemia, unspecified; E03.9 Hypothyroidism, unspecified; D69.6 Thrombocytopenia, unspecified; K44.9 Diaphragmatic hernia without obstruction or gangrene; E11.9 Type 2 diabetes mellitus without complications; Z88.0 Allergy status to penicillin; F10.20 Alcohol dependence, uncomplicated; E83.39 Other disorders of phosphorus metabolism
CPT/HCPCS: 36415; 71045-TC; 74181-TC; 76705-TC; 80048-TC; 80053-TC; 80076-TC; 83690-TC; 83735-TC; 84100-TC; 84484-TC; 85025-TC; 85610-TC; 86850-TC; 87070-TC; 87081-TC; 87186-TC; 88304-TC; 93307-TC; A4216; A6253; A6403; C9803; G0378; J0330; J1100; J1170; J1650; J1885; J1956; J2270; J2370; J2405; J2543; J2704; J2765; J3411; J3475; J3490; J7030; J7050; J7060; J7120

== ENCOUNTER 2021-05-18 18:38 | Emergency (ER) | payer OTHER ==
[~2021-05-18] VITALS: Ht 152.4 cm; Wt 53.1 kg
[~2021-05-18 18:38] MED LIST: ATOR10TA PO; FERR325T23 PO; LEVO25TA7 PO; LEVO500T90 PO; LISI40TA13 PO; METR500T PO
--- NOTE | 2021-05-18 18:52 | NUR ---
TO ER BED 9, BIB DAUGHTER, SENT BY DR MCDONALD D/T ELEVATED PLT COUNT DRAWN FRIDAY, GALLBLADDER SURGERY DONE 04/27/21, AAOX3, BREATHING EVEN AND NON LABORED, FAMILY AT BEDSIDE
--- NOTE | 2021-05-18 19:01 | NUR ---
LAB AT BEDSIDE
[2021-05-18 19:14] LABS: BASOPHILS # (AUTO) 0.1 K/uL (0.0-0.2); BASOPHILS % (AUTO) 1.2 % (0.0-2.0); EOSINOPHILS % (AUTO) 4.5 % (0.0-6.0); HEMATOCRIT 34 % (33-45); HEMOGLOBIN 10.9 g/dL (11.5-14.8); LYMPHOCYTES # (AUTO) 1.2 K/uL (0.8-4.8); LYMPHOCYTES % (AUTO) 26.5 % (20.0-44.0); MEAN CORPUSCULAR HGB CONC 32 g/dl (31.0-36.0); MEAN CORPUSCULAR VOLUME 100 fL (82-100); MONOCYTES # (AUTO) 0.6 K/uL (0.1-1.30); MONOCYTES % (AUTO) 13.5 % (2.0-12.0); NEUTROPHILS # (AUTO) 2.5 K/uL (1.8-8.9); NEUTROPHILS % (AUTO) 54.3 % (43.0-81.0); PLATELET COUNT (AUTO) 360 K/uL (150-450); RED BLOOD CELL COUNT(AUTO) 3.41 MIL/uL (4.0-5.2); WHITE BLOOD COUNT (AUTO) 4.6 K/uL (4.3-11.0)
[2021-05-18 19:22] LABS: CALCIUM, SERUM 8.9 mg/dL (8.5-10.1); CREATININE 0.9 mg/dL (0.6-1.3)
--- NOTE | 2021-05-18 20:11 | NUR ---
Patient discharged to home in stable condition. Written and verbal after care instructions given. Patient verbalizes understanding of instruction.
[2021-05-18 20:15] VITALS: BP 111/59
== END 2021-05-18 20:16 | disposition home or self-care (01) ==
LOC: ER 18:46
DX: Z00.8 Encounter for other general examination (principal); I10 Essential (primary) hypertension; E78.5 Hyperlipidemia, unspecified; Z88.0 Allergy status to penicillin; Z90.49 Acquired absence of other specified parts of digestive tract
CPT/HCPCS: 36415; 80048-TC; 85025-TC